=== PATIENT | female | born 1965 | race African-American/Black ===

== ENCOUNTER 2021-02-13 13:16 | Emergency (ER) | payer MEDICAID ==
[~2021-02-13] VITALS: Ht 167.6 cm; Wt 74.4 kg
[2021-02-13 13:27] VITALS: BP_SYST 136
--- NOTE | 2021-02-13 13:35 | NUR ---
Patient to ER bed 8 to gown for evaluation. Side rails up. Report given to Kandace ARMIJO.
--- NOTE | 2021-02-13 13:45 | NUR ---
Pt walked in to ER with c/o chronic pain 8/ d/t spinal stenosis, worsening over the last few days. Pt is in a treatment program for substance abuse and can't take any narcotics. V/S stable, no acute distress noted.
--- NOTE | 2021-02-13 14:15 | NUR ---
ER Dr. Christina at bedside examining patient.
[2021-02-13] MEDS ORDERED: METH-634 PO (14:44)
[2021-02-13] MEDS ORDERED: NEU100 PO (14:45)
[2021-02-13] MEDS ORDERED: NAPROXEN 250 MG TABLET PO ONE (15:45)
[2021-02-13] MEDS ORDERED: methocarbamoL 500 MG TABLET PO ONE (15:45)
[2021-02-13] MEDS ORDERED: NAPROXEN 250 MG TABLET PO SCH (15:45)
[2021-02-13] MEDS ORDERED: GABAPENTIN 100 MG CAPSULE PO ONE (15:45)
--- NOTE | 2021-02-13 16:05 | NUR ---
Patient given written and verbal discharge instructions and verbalizes understanding. ER MD discussed with patient the results and treatment provided. Patient in stable condition. ID arm band removed. Rx of Gabapentin and Robaxin given. Patient educated on pain management and to follow up with PMD. Pain Scale 0. Opportunity for questions provided and answered. Medication side effect fact sheet provided.
[2021-02-13 16:07] VITALS: BP_SYST 136
== END 2021-02-13 16:07 | disposition home or self-care (01) ==
LOC: SED 13:16
DX: G89.29 Other chronic pain (principal); M54.2 Cervicalgia; M54.6 Pain in thoracic spine; I10 Essential (primary) hypertension; Z79.899 Other long term (current) drug therapy
CPT/HCPCS: 99284